=== PATIENT | female | born 1990 | race Caucasian/White ===

== ENCOUNTER → 2018-09-21 | Outpatient (CLI) | payer BC, SELFPAY ==
[2018-09-26 17:20] LABS: HPV Reflexed? NOT INDICATED
== END | disposition home or self-care (01) ==
LOC: LABSPEC 13:53
PROVIDERS: Visit Provider Obstetrics & Gynecology
DX: Z12.4 Encounter for screening for malignant neoplasm of cervix (principal)
CPT/HCPCS: 87624; 88175; G0145

== ENCOUNTER → 2018-12-22 | Outpatient (CLI) | payer BC, SELFPAY ==
[2018-12-10 11:44] VITALS: BMI 38.4
[2018-12-22 11:36] LABS: Prolactin 6.4 ng/mL; Thyroid Stim Hormone (TSH) 1.26 uIU/mL (0.358-3.74)
[2018-12-24 09:04] LABS: Progesterone Level 12.14 ng/mL (See Comment)
== END | disposition home or self-care (01) ==
LOC: LAB 09:55
PROVIDERS: Family Provider Family Medicine; PCP Family Medicine; Referring Provider Nurse Practitioner Women's Health; Visit Provider Nurse Practitioner Women's Health
DX: N64.3 Galactorrhea not associated with childbirth (principal); I10 Essential (primary) hypertension
CPT/HCPCS: 36415; 84144; 84146; 84443

== ENCOUNTER → 2019-03-04 12:07 | Outpatient (CLI) | payer BC, SELFPAY ==
[2019-03-04 11:41] VITALS: BMI 38.4
[2019-03-04 12:46] LABS: Absolute Lymphocyte Count 1.09 X10^3/uL (0.83-4.51); Absolute Neutrophil Count 5.5 X10^3/uL (2.0-7.7); Basophil# 0.03 X10^3/uL; Basophil% 0.4 % (0-1); Eosinophil# 0.06 X10^3/uL; Eosinophils% 0.8 % (0-5); Hematocrit 40.2 % (37-47); Hemoglobin 13.2 g/dL (12.0-15.0); Lymphocyte # 1.09 X10^3/ul (4.0); Lymphocyte % 15.2 % (19-41); Mean Corp Hgb Conc 32.8 g/dL (32-36); Mean Corpuscular Hgb 29.1 pg (27.0-32.0); Mean Corpuscular Volume 88.7 fL (81-99); Mean Platelet Vol. 10.1 fl (6.2-12.0); Monocyte# 0.53 X10^3/uL; Monocyte% 7.4 % (0-10); NRBC Flagged by Analyzer 0 % (0-5); Neutrophil # 5.45 X10^3/uL (2.7-7.7); Neutrophil % 75.9 % (47-70); Platelet Count 277 K/mm3 (150-450); RBC Distribution Width CV 12.9 % (11.6-14.6); RBC Distribution Width SD 42.2 fl (35.1-43.9); Red Blood Count 4.53 M/mm3 (4.2-5.4); White Blood Count 7.2 K/mm3 (4.4-11.0)
[2019-03-04 13:10] LABS: Albumin, Serum 3.8 g/dL (3.2-5.0); BUN 10 mg/dL (7-18); BUN/Creat Ratio 13.9 RATIO (10-20); Creatinine, Serum 0.72 mg/dL (0.55-1.02); EST Glomerular Filtration Rate 101 mL/min (>60); Est Glom Filt Rate - Afr Amer 122 mL/min (>60); Globulin 3.6 g/dL (2.2-4.2); Glucose 81 mg/dL (74-106); Protein, Total 7.4 g/dL (6.4-8.2)
[2019-03-04 13:11] LABS: ALB/GLOB Ratio 1.1 RATIO (0.9-2.4); AST(SGOT) 13 U/L (15-37); Alanine Aminotransfer ALT/SGPT 18 U/L (13-56); Alkaline Phosphatase 51 U/L (45-117); Anion Gap 6 (5-15); Calcium,Total 9.1 mg/dL (8.5-10.1); Chloride 103 mmol/L (98-107); Potassium 3.3 mmol/L (3.5-5.1); Sodium Level 135 mmol/L (136-145)
[2019-03-04 13:55] LABS: HIV - WCH Non-Reactive (Nonreactive); Rubella IgG 146.3 IU/mL
[2019-03-04 16:34] LABS: Protein, Urine (Random) 10.8 mg/dL (<11.9); Protein:Creat Ratio 193 mg/g CRE (0-200)
[2019-03-04 19:38] LABS: Chlamydia Trachomatis by PCR Negative (Negative); Neisserai gonorrhoeae by PCR Negative (Negative); Probe Check PASS; Sample Adequacy Control PASS; Specimen Processing Control PASS
[2019-03-08 02:41] LABS: Rapid Plasmin Reagin (RPR) NONREACTIVE (NONREACTIVE)
== END ==
PROVIDERS: Family Provider Family Medicine; PCP Family Medicine; Referring Provider Obstetrics & Gynecology; Visit Provider Obstetrics & Gynecology
DX: Z34.80 Encounter for supervision of other normal pregnancy, unspecified trimester (principal); I10 Essential (primary) hypertension
CPT/HCPCS: 36415; 80053; 82570; 84156; 85025; 86592; 86703; 86762; 86850; 86900; 86901; 87086; 87491; 87591

== ENCOUNTER → 2019-04-09 15:07 | Outpatient (CLI) | payer BC, SELFPAY ==
[2019-04-09 14:56] VITALS: BMI 38.4
[2019-04-09 15:31] LABS: Creatinine, Urine (random) < 13.00 mg/dL (NO RANGE EST.); Protein, Urine (Random) < 6.0 mg/dL (<11.9)
[2019-04-09 15:46] LABS: Absolute Lymphocyte Count 1.54 X10^3/uL (0.83-4.51); Absolute Neutrophil Count 5.4 X10^3/uL (2.0-7.7); Basophil# 0.03 X10^3/uL; Basophil% 0.4 % (0-1); Eosinophil# 0.16 X10^3/uL; Eosinophils% 2.1 % (0-5); Hematocrit 36.4 % (37-47); Hemoglobin 12.1 g/dL (12.0-15.0); Lymphocyte # 1.54 X10^3/ul (4.0); Lymphocyte % 20.1 % (19-41); Mean Corp Hgb Conc 33.2 g/dL (32-36); Mean Corpuscular Hgb 29.6 pg (27.0-32.0); Mean Platelet Vol. 9.9 fl (6.2-12.0); Monocyte# 0.51 X10^3/uL; Monocyte% 6.7 % (0-10); NRBC Flagged by Analyzer 0 % (0-5); Neutrophil % 70.4 % (47-70); Platelet Count 248 K/mm3 (150-450); RBC Distribution Width CV 13.2 % (11.6-14.6); RBC Distribution Width SD 43.2 fl (35.1-43.9); Red Blood Count 4.09 M/mm3 (4.2-5.4); White Blood Count 7.7 K/mm3 (4.4-11.0)
[2019-04-09 16:17] LABS: AST(SGOT) 11 U/L (15-37); Alanine Aminotransfer ALT/SGPT 16 U/L (13-56); Albumin, Serum 3.4 g/dL (3.2-5.0); Alkaline Phosphatase 49 U/L (45-117); Anion Gap 4 (5-15); BUN 11 mg/dL (7-18); BUN/Creat Ratio 18.4 RATIO (10-20); Calcium,Total 8.8 mg/dL (8.5-10.1); Chloride 105 mmol/L (98-107); EST Glomerular Filtration Rate 125 mL/min (>60); Est Glom Filt Rate - Afr Amer 151 mL/min (>60); Globulin 3.4 g/dL (2.2-4.2); Glucose 82 mg/dL (74-106); Potassium 3.2 mmol/L (3.5-5.1); Protein, Total 6.8 g/dL (6.4-8.2); Sodium Level 137 mmol/L (136-145)
== END ==
LOC: LABSPEC 15:08 → PAVLAB 15:23
PROVIDERS: Family Provider Family Medicine; PCP Family Medicine; Referring Provider Nurse Practitioner Women's Health; Visit Provider Nurse Practitioner Women's Health
DX: I10 Essential (primary) hypertension (principal)
CPT/HCPCS: 36415; 80053; 82570; 84156; 85025

== ENCOUNTER → 2019-04-26 10:53 | Outpatient (CLI) | payer BC, SELFPAY ==
[2019-04-26 10:47] VITALS: BMI 38.4
[2019-04-26 12:29] LABS: Hepatitis B Surface Antigen Non-Reactive (Nonreactive)
== END ==
PROVIDERS: Family Provider Family Medicine; PCP Family Medicine; Referring Provider Obstetrics & Gynecology; Visit Provider Obstetrics & Gynecology
DX: Z34.80 Encounter for supervision of other normal pregnancy, unspecified trimester (principal)
CPT/HCPCS: 36415; 87340

== ENCOUNTER → 2019-05-24 14:40 | Outpatient (CLI) | payer BC, SELFPAY ==
[2019-05-24 14:35] VITALS: BMI 38.4
[2019-05-24 14:55] LABS: Creatinine, Urine (random) < 13.00 mg/dL (NO RANGE EST.); Protein, Urine (Random) 6.1 mg/dL (<11.9)
[2019-05-24 15:23] LABS: Absolute Lymphocyte Count 1.76 X10^3/uL (0.83-4.51); Absolute Neutrophil Count 6.3 X10^3/uL (2.0-7.7); Basophil# 0.04 X10^3/uL; Basophil% 0.4 % (0-1); Eosinophil# 0.38 X10^3/uL; Eosinophils% 4.1 % (0-5); Hematocrit 36.2 % (37-47); Lymphocyte # 1.76 X10^3/ul (4.0); Lymphocyte % 19.2 % (19-41); Mean Corp Hgb Conc 33.1 g/dL (32-36); Mean Corpuscular Hgb 29.9 pg (27.0-32.0); Mean Corpuscular Volume 90.3 fL (81-99); Mean Platelet Vol. 10.3 fl (6.2-12.0); Monocyte# 0.64 X10^3/uL; NRBC Flagged by Analyzer 0 % (0-5); Neutrophil # 6.32 X10^3/uL (2.7-7.7); Platelet Count 245 K/mm3 (150-450); RBC Distribution Width CV 13.1 % (11.6-14.6); RBC Distribution Width SD 43.4 fl (35.1-43.9); Red Blood Count 4.01 M/mm3 (4.2-5.4); White Blood Count 9.2 K/mm3 (4.4-11.0)
[2019-05-24 15:46] LABS: ALB/GLOB Ratio 0.9 RATIO (0.9-2.4); AST(SGOT) 15 U/L (15-37); Alanine Aminotransfer ALT/SGPT 18 U/L (13-56); Albumin, Serum 3.3 g/dL (3.2-5.0); Alkaline Phosphatase 56 U/L (45-117); Anion Gap 5 (5-15); BUN 12 mg/dL (7-18); BUN/Creat Ratio 17.4 RATIO (10-20); Calcium,Total 9.1 mg/dL (8.5-10.1); Chloride 106 mmol/L (98-107); Creatinine, Serum 0.69 mg/dL (0.55-1.02); EST Glomerular Filtration Rate 106 mL/min (>60); Est Glom Filt Rate - Afr Amer 128 mL/min (>60); Globulin 3.6 g/dL (2.2-4.2); Glucose 82 mg/dL (74-106); LDH 181 U/L (84-246); Potassium 3.9 mmol/L (3.5-5.1); Protein, Total 6.9 g/dL (6.4-8.2); Sodium Level 138 mmol/L (136-145)
== END ==
PROVIDERS: Family Provider Family Medicine; PCP Family Medicine; Referring Provider Nurse Practitioner Women's Health; Visit Provider Nurse Practitioner Women's Health
DX: I10 Essential (primary) hypertension (principal)
CPT/HCPCS: 36415; 80053; 82570; 83615; 84156; 84550; 85025

== ENCOUNTER 2019-06-18 02:11 | Outpatient (CLI) | payer BC, SELFPAY ==
[2019-05-24 14:35] VITALS: BMI 38.4
[2019-06-18 02:43] VITALS: BMI 29.4
[2019-06-18 02:51] LABS: Bacteria 0 SEEN /hpf (None Seen); Color, Urine Yellow (Yellow); Glucose, Dipstick Normal (Normal); Ketone-Dipstick Negative (Negative); Leukocyte Esterase-Dipstick Negative /ul (Negative); Mucous, Urine 0 SEEN /hpf (<or=2+); Nitrite-Dipstick Negative (Negative); Occult Blood-Urine Negative /ul (Negative); Protein-Dipstick Negative (Negative); Urine Bilirubin Dipstick Negative (Negative); Urine Clarity Clear (Clear); Urine Urobilinogen Normal (Normal); Urine pH 6.5 (5.0 - 8.0)
[2019-06-18 02:57] LABS: Amorphous Sediment 2+; Red Blood Cells-Urine 0-5 SEEN /hpf (0-5); Squamous Epithelial Cells - UA 0-5 SEEN /hpf (5-10); White Blood Cells 0-5 SEEN /hpf (0-5)
[2019-06-18] MEDS: Lactated Ringers 1,000 ML 999 ML IV (03:25)
[2019-06-18 04:06] LABS: Hemoglobin 11.8 g/dL (12.0-15.0); Mean Corp Hgb Conc 33.7 g/dL (32-36); Mean Corpuscular Hgb 30.5 pg (27.0-32.0); Mean Corpuscular Volume 90.4 fL (81-99); Mean Platelet Vol. 10.2 fl (6.2-12.0); Platelet Count 247 K/mm3 (150-450); RBC Distribution Width CV 12.8 % (11.6-14.6); RBC Distribution Width SD 41.5 fl (35.1-43.9); Red Blood Count 3.87 M/mm3 (4.2-5.4)
[2019-06-18] MEDS: fentaNYL 100 MCG/2 ML Ampul 50 MCG IV (04:10)
[2019-06-18 04:16] LABS: ALB/GLOB Ratio 0.8 RATIO (0.9-2.4); AST(SGOT) 23 U/L (15-37); Alanine Aminotransfer ALT/SGPT 19 U/L (13-56); Albumin, Serum 2.8 g/dL (3.2-5.0); Alkaline Phosphatase 55 U/L (45-117); Anion Gap 7 (5-15); BUN 12 mg/dL (7-18); BUN/Creat Ratio 14.3 RATIO (10-20); Calcium,Total 8.5 mg/dL (8.5-10.1); Chloride 107 mmol/L (98-107); Creatinine, Serum 0.84 mg/dL (0.55-1.02); EST Glomerular Filtration Rate 84 mL/min (>60); Est Glom Filt Rate - Afr Amer 102 mL/min (>60); Estimated Creatinine Clearance 88.12 ml/min; Globulin 3.6 g/dL (2.2-4.2); Glucose 95 mg/dL (74-106); Potassium 3.8 mmol/L (3.5-5.1); Protein, Total 6.4 g/dL (6.4-8.2); Sodium Level 138 mmol/L (136-145)
[2019-06-18] MEDS: Ondansetron 4 MG/2 ML Vial IV (04:17)
[2019-06-18] MEDS: Lactated Ringers 1,000 ML 200 ML IV (04:38)
[2019-06-18 04:47] LABS: Fibrinogen 302 mg/dl (203-444)
[2019-06-18 05:02] LABS: Protein, Urine (Random) 27.4 mg/dL (<11.9); Protein:Creat Ratio 335 mg/g CRE (0-200)
[2019-06-18 05:14] LABS: Amphetamine Urine VISTA NEGATIVE (<1000 ng/mL); Barbiturate Urine VISTA NEGATIVE (< 200 ng/mL); Benzodiazepine Urine VISTA NEGATIVE (< 200 ng/mL); Cocaine Urine VISTA NEGATIVE (< 300 ng/mL); Ecstacy Urine VISTA NEGATIVE (< 500 ng/mL); Methadone Urine VISTA NEGATIVE (< 300 ng/mL); PCP Urine VISTA NEGATIVE (< 25 ng/mL); THC Urine VISTA NEGATIVE (< 50 ng/mL); Vista UDS pH Range 6
--- NOTE | 2019-06-18 09:16 | OB.TRI.PN_ITS ---
Progress Notes Date of Service: 06/18/19 Progress Note: patient seen for kidney stone, given IVFs and pain meds and passed the stone without difficulty. borderline elvated bps and borderline low fibringoen,. repeat in office monday. Laboratory Studies: Laboratory Tests 06/18/19 06/18/19 06/18/19 Range/Units 04:25 03:25 03:25 WBC (4.4-11.0) K/mm3 RBC (4.2-5.4) M/mm3 Hgb (12.0-15.0) g/dL Hct (37-47) % MCV (81-99) fL MCH (27.0-32.0) pg MCHC (32-36) g/dL RDW Std Deviation (35.1-43.9) fl RDW Coeff of Mushtaq (11.6-14.6) % Plt Count (150-450) K/mm3 MPV (6.2-12.0) fl Fibrinogen 302 Cancelled Sodium 138 (136-145) mmol/L Potassium 3.8 (3.5-5.1) mmol/L Chloride 107 (98-107) mmol/L Carbon Dioxide 24.0 (21.0-32.0) mmol/L Anion Gap 7 (5-15) BUN 12 (7-18) mg/dL Creatinine 0.84 (0.55-1.02) mg/dL Estim Creat Clear Calc 88.12 ml/min Est GFR (MDRD) Af Amer 102 (>60) mL/min Est GFR (MDRD) Non-Af 84 (>60) mL/min BUN/Creatinine Ratio 14.3 (10-20) RATIO Glucose 95 (74-106) mg/dL Calcium 8.5 (8.5-10.1) mg/dL Total Bilirubin 0.20 (0.20-1.00) mg/dL AST 23 (15-37) U/L ALT 19 (13-56) U/L Alkaline Phosphatase 55 (45-117) U/L Total Protein 6.4 (6.4-8.2) g/dL Albumin 2.8 L (3.2-5.0) g/dL Globulin 3.6 (2.2-4.2) g/dL Albumin/Globulin Ratio 0.8 L (0.9-2.4) RATIO Urine Color (Yellow) Urine Clarity (Clear) Urine pH (5.0 - 8.0) Ur Specific [place]den (1.002-1.030) Urine Protein (Negative) mg/dl Urine Glucose (UA) (Normal) mg/dl Urine Ketones (Negative) mg/dl Urine Occult Blood (Negative) /ul Urine Nitrite (Negative) Urine Bilirubin (Negative) mg/dL Urine Urobilinogen (Normal) mg/dl Ur Leukocyte Esterase (Negative) /ul Urine RBC (0-5) /hpf Urine WBC (0-5) /hpf Ur Squamous Epith Cells (5-10) /hpf Amorphous Sediment Urine Bacteria (None Seen) /hpf Urine Mucus (<or=2+) /hpf U Random Total Protein (<11.9) mg/dL Urine Creatinine (NO RANGE EST.) mg/dL Protein/Creatinin Ratio (0-200) mg/g CRE Urine Opiates Screen (< 300 ng/mL) Urine Methadone Screen (< 300 ng/mL) Ur Barbiturates Screen (< 200 ng/mL) Ur Phencyclidine Scrn (< 25 ng/mL) Ur Amphetamines Screen (<1000 ng/mL) U Methamphetamin-MDMA (< 500 ng/mL) U Benzodiazepines Scrn (< 200 ng/mL) Urine Cocaine Screen (< 300 ng/mL) U Cannabinoids Screen (< 50 ng/mL) Ur Drug Screen Comment 06/18/19 06/18/19 06/18/19 Range/Units 03:25 03:25 03:25 WBC 11.0 (4.4-11.0) K/mm3 RBC 3.87 L (4.2-5.4) M/mm3 Hgb 11.8 L (12.0-15.0) g/dL Hct 35.0 L (37-47) % MCV 90.4 (81-99) fL MCH 30.5 (27.0-32.0) pg MCHC 33.7 (32-36) g/dL RDW Std Deviation 41.5 (35.1-43.9) fl RDW Coeff of Mushtaq 12.8 (11.6-14.6) % Plt Count 247 (150-450) K/mm3 MPV 10.2 (6.2-12.0) fl Fibrinogen Sodium (136-145) mmol/L Potassium (3.5-5.1) mmol/L Chloride (98-107) mmol/L Carbon Dioxide (21.0-32.0) mmol/L Anion Gap (5-15) BUN (7-18) mg/dL Creatinine (0.55-1.02) mg/dL Estim Creat Clear Calc ml/min Est GFR (MDRD) Af Amer (>60) mL/min Est GFR (MDRD) Non-Af (>60) mL/min BUN/Creatinine Ratio (10-20) RATIO Glucose (74-106) mg/dL Calcium (8.5-10.1) mg/dL Total Bilirubin (0.20-1.00) mg/dL AST (15-37) U/L ALT (13-56) U/L Alkaline Phosphatase (45-117) U/L Total Protein (6.4-8.2) g/dL Albumin (3.2-5.0) g/dL Globulin (2.2-4.2) g/dL Albumin/Globulin Ratio (0.9-2.4) RATIO Urine Color (Yellow) Urine Clarity (Clear) Urine pH (5.0 - 8.0) Ur Specific [place]den (1.002-1.030) Urine Protein (Negative) mg/dl Urine Glucose (UA) (Normal) mg/dl Urine Ketones (Negative) mg/dl Urine Occult Blood (Negative) /ul Urine Nitrite (Negative) Urine Bilirubin (Negative) mg/dL Urine Urobilinogen (Normal) mg/dl Ur Leukocyte Esterase (Negative) /ul Urine RBC (0-5) /hpf Urine WBC (0-5) /hpf Ur Squamous Epith Cells (5-10) /hpf Amorphous Sediment Urine Bacteria (None Seen) /hpf Urine Mucus (<or=2+) /hpf U Random Total Protein 27.4 H (<11.9) mg/dL Urine Creatinine 81.70 (NO RANGE EST.) mg/dL Protein/Creatinin Ratio 335 H (0-200) mg/g CRE Urine Opiates Screen NEGATIVE (< 300 ng/mL) Urine Methadone Screen NEGATIVE (< 300 ng/mL) Ur Barbiturates Screen NEGATIVE (< 200 ng/mL) Ur Phencyclidine Scrn NEGATIVE (< 25 ng/mL) Ur Amphetamines Screen NEGATIVE (<1000 ng/mL) U Methamphetamin-MDMA NEGATIVE (< 500 ng/mL) U Benzodiazepines Scrn NEGATIVE (< 200 ng/mL) Urine Cocaine Screen NEGATIVE (< 300 ng/mL) U Cannabinoids Screen NEGATIVE (< 50 ng/mL) Ur Drug Screen Comment 06/18/19 Range/Units 02:40 WBC (4.4-11.0) K/mm3 RBC (4.2-5.4) M/mm3 Hgb (12.0-15.0) g/dL Hct (37-47) % MCV (81-99) fL MCH (27.0-32.0) pg MCHC (32-36) g/dL RDW Std Deviation (35.1-43.9) fl RDW Coeff of Mushtaq (11.6-14.6) % Plt Count (150-450) K/mm3 MPV (6.2-12.0) fl Fibrinogen Sodium (136-145) mmol/L Potassium (3.5-5.1) mmol/L Chloride (98-107) mmol/L Carbon Dioxide (21.0-32.0) mmol/L Anion Gap (5-15) BUN (7-18) mg/dL Creatinine (0.55-1.02) mg/dL Estim Creat Clear Calc ml/min Est GFR (MDRD) Af Amer (>60) mL/min Est GFR (MDRD) Non-Af (>60) mL/min BUN/Creatinine Ratio (10-20) RATIO Glucose (74-106) mg/dL Calcium (8.5-10.1) mg/dL Total Bilirubin (0.20-1.00) mg/dL AST (15-37) U/L ALT (13-56) U/L Alkaline Phosphatase (45-117) U/L Total Protein (6.4-8.2) g/dL Albumin (3.2-5.0) g/dL Globulin (2.2-4.2) g/dL Albumin/Globulin Ratio (0.9-2.4) RATIO Urine Color Yellow (Yellow) Urine Clarity Clear (Clear) Urine pH 6.5 (5.0 - 8.0) Ur Specific [place] 1.020 (1.002-1.030) Urine Protein Negative (Negative) mg/dl Urine Glucose (UA) Normal (Normal) mg/dl Urine Ketones Negative (Negative) mg/dl Urine Occult Blood Negative (Negative) /ul Urine Nitrite Negative (Negative) Urine Bilirubin Negative (Negative) mg/dL Urine Urobilinogen Normal (Normal) mg/dl Ur Leukocyte Esterase Negative (Negative) /ul Urine RBC 0-5 SEEN (0-5) /hpf Urine WBC 0-5 SEEN (0-5) /hpf Ur Squamous Epith Cells 0-5 SEEN (5-10) /hpf Amorphous Sediment 2+ Urine Bacteria 0 SEEN (None Seen) /hpf Urine Mucus 0 SEEN (<or=2+) /hpf U Random Total Protein (<11.9) mg/dL Urine Creatinine (NO RANGE EST.) mg/dL Protein/Creatinin Ratio (0-200) mg/g CRE Urine Opiates Screen (< 300 ng/mL) Urine Methadone Screen (< 300 ng/mL) Ur Barbiturates Screen (< 200 ng/mL) Ur Phencyclidine Scrn (< 25 ng/mL) Ur Amphetamines Screen (<1000 ng/mL) U Methamphetamin-MDMA (< 500 ng/mL) U Benzodiazepines Scrn (< 200 ng/mL) Urine Cocaine Screen (< 300 ng/mL) U Cannabinoids Screen (< 50 ng/mL) Ur Drug Screen Comment - Problem List (1) Proteinuria Status: Acute Comment: repeat urine protein creatinine ratio in office 06/21/19 (2) Nephrolithiasis Status: Acute Comment: passed 06/18/19 macrobid bid x 7 days. order repeat fibrinogen in office 06/21/19 Multi Select Codes - Urinary/Genital Urinary/Genital CPT Codes: Other Procedure See Report - report visit no charge
== END 2019-06-18 07:40 | disposition home or self-care (01) ==
LOC: WPOUT 02:16 → OBT 02:17
PROVIDERS: Family Provider Family Medicine; PCP Family Medicine; Referring Provider Obstetrics & Gynecology; Visit Provider Obstetrics & Gynecology
DX: O26.899 Other specified pregnancy related conditions, unspecified trimester (principal); N20.0 Calculus of kidney; O12.10 Gestational proteinuria, unspecified trimester; R03.0 Elevated blood-pressure reading, without diagnosis of hypertension; Z3A.00 Weeks of gestation of pregnancy not specified
CPT/HCPCS: 96361 ×4; 96374; 36415; 59050; 80053; 80307; 81001; 82570; 84156; 85027; 85384; 87086; 87088; 99218; J7120; A4216; G0378; J2405

== ENCOUNTER → 2019-06-21 10:57 | Outpatient (CLI) | payer BC, SELFPAY ==
[2019-06-21 10:17] VITALS: BMI 29.4
[2019-06-21 11:24] LABS: Fibrinogen 358 mg/dl (203-444)
[2019-06-21 14:14] LABS: Creatinine, Urine (random) < 13.00 mg/dL (NO RANGE EST.); Protein, Urine (Random) < 6.0 mg/dL (<11.9)
== END ==
PROVIDERS: PCP Family Medicine; Referring Provider Obstetrics & Gynecology; Visit Provider Obstetrics & Gynecology
DX: I10 Essential (primary) hypertension (principal)
CPT/HCPCS: 36415; 82570; 84156; 85384

== ENCOUNTER → 2019-07-12 10:17 | Outpatient (CLI) | payer BC, SELFPAY ==
[2019-07-12 10:00] VITALS: BMI 29.4
[2019-07-12 11:41] LABS: Absolute Lymphocyte Count 1.22 X10^3/uL (0.83-4.51); Absolute Neutrophil Count 5.5 X10^3/uL (2.0-7.7); Basophil# 0.03 X10^3/uL; Basophil% 0.4 % (0-1); Eosinophil# 0.12 X10^3/uL; Eosinophils% 1.6 % (0-5); Hematocrit 34.4 % (37-47); Hemoglobin 11.2 g/dL (12.0-15.0); Lymphocyte # 1.22 X10^3/ul (4.0); Lymphocyte % 16.5 % (19-41); Mean Corp Hgb Conc 32.6 g/dL (32-36); Mean Corpuscular Hgb 29.9 pg (27.0-32.0); Mean Platelet Vol. 10.2 fl (6.2-12.0); Monocyte# 0.55 X10^3/uL; Monocyte% 7.4 % (0-10); NRBC Flagged by Analyzer 0 % (0-5); Neutrophil # 5.45 X10^3/uL (2.7-7.7); Neutrophil % 73.7 % (47-70); Platelet Count 247 K/mm3 (150-450); RBC Distribution Width CV 13.1 % (11.6-14.6); RBC Distribution Width SD 43.7 fl (35.1-43.9); Red Blood Count 3.74 M/mm3 (4.2-5.4); White Blood Count 7.4 K/mm3 (4.4-11.0)
[2019-07-12 12:26] LABS: ALB/GLOB Ratio 0.8 RATIO (0.9-2.4); AST(SGOT) 13 U/L (15-37); Alanine Aminotransfer ALT/SGPT 19 U/L (13-56); Albumin, Serum 2.9 g/dL (3.2-5.0); Alkaline Phosphatase 61 U/L (45-117); Anion Gap 5 (5-15); BUN 11 mg/dL (7-18); BUN/Creat Ratio 14.8 RATIO (10-20); Calcium,Total 8.4 mg/dL (8.5-10.1); Chloride 106 mmol/L (98-107); Creatinine, Serum 0.74 mg/dL (0.55-1.02); EST Glomerular Filtration Rate 97 mL/min (>60); Est Glom Filt Rate - Afr Amer 118 mL/min (>60); Globulin 3.8 g/dL (2.2-4.2); Glucose 73 mg/dL (74-106); Glucose Challenge Gest 1H 50g 73 mg/dL (70-140); Potassium 3.7 mmol/L (3.5-5.1); Protein, Total 6.7 g/dL (6.4-8.2); Sodium Level 138 mmol/L (136-145)
== END ==
PROVIDERS: PCP Family Medicine; Referring Provider Obstetrics & Gynecology; Visit Provider Obstetrics & Gynecology
DX: Z34.82 Encounter for supervision of other normal pregnancy, second trimester (principal); I10 Essential (primary) hypertension; Z3A.27 27 weeks gestation of pregnancy
CPT/HCPCS: 36415; 80053; 82950; 85025

== ENCOUNTER 2019-08-12 13:20 | Outpatient (CLI) | payer BC, SELFPAY ==
[2019-08-05 10:02] VITALS: BMI 29.4
--- NOTE | 2019-08-12 12:27 | US_ITS ---
STUDY: SECOND AND THIRD TRIMESTER OBSTETRICAL ULTRASOUND - LIMITED REASON FOR EXAM: Female, 28 years old growth and BPP for hypertension LMP: December 29, 2018. PRIOR ULTRASOUND: None. TECHNIQUE: Transabdominal TECHNICAL QUALITY: Adequate. FINDINGS: There is a single intrauterine fetus. The fetus is in a breech presentation. There is demonstrated cardiac activity with a heart rate of 136 bpm. There is a normal amniotic fluid volume. The largest amniotic fluid pocket measures 5.0 cm. The amniotic fluid index (AKOSUA) is 15.5 cm. The placenta is anterior in location and is not low lying. There are Grade 1 placental changes. The cervix measures 3.9 cm in length. BIOMETRY: BPD: 8.48 cm: 34 weeks, 1 days HC: 31.4 cm: 35 weeks, 1 days AC: 30.56 cm: 34 weeks, 3 days FL: 6.33 cm: 32 weeks, 5 days Age by LMP: 32 weeks, 2 days. DEV by LMP: October 05, 2019. age by current US: 34 weeks, 0 days. DEV by current US: October 23, 2019. Estimated weight: 2341 grams, +/- 346 grams, 86 percentile. IMPRESSION: Single live intrauterine gestation with a mean gestational age of 34 weeks. Electronically Signed: Leo Su, at 15:30 EDT , Service support , STUDY: OBSTETRICAL ULTRASOUND - BIOPHYSICAL PROFILE REASON FOR EXAM: Female, 28 years old growth and BPP for hypertension LMP: December 29, 2018. PRIOR ULTRASOUND: None. TECHNIQUE: TECHNICAL QUALITY: Adequate. BIOPHYSICAL PROFILE: Breathing Movements (FBM): 0 Gross Body Movements (GBM): 2 Tone (FT): 2 Amniotic Fluid Volume (AFV): 2 TOTAL SCORE: 6 / 8 US/OB Limited With Biometrics IMPRESSION: biophysical profile of 11/10. Electronically Signed: Leo Su, at 15:30 EDT , Service support ,
[2019-08-12 13:32] VITALS: BMI 31.2
--- NOTE | 2019-08-13 04:17 | OB.TRI.PN_ITS ---
Progress Notes Date of Service: 08/12/19 Progress Note: nst secondary to 6/8 BPP 2 off for breathing FHT: 140 Moderate variability reactive no decelerations category I tracing [place]: no Contractions Abnormal testing?reassuring reactive NST. 8 out of 10 BPP. Multi Select Codes - Urinary/Genital Urinary/Genital CPT Codes: 29858-40 non-stress test Interp
== END 2019-08-12 17:10 | disposition home or self-care (01) ==
LOC: OPUS 13:26 → WPOUT 13:28 → OBT 13:29
PROVIDERS: PCP Family Medicine; Referring Provider Obstetrics & Gynecology; Visit Provider Obstetrics & Gynecology
DX: O28.9 Unspecified abnormal findings on antenatal screening of mother (principal); Z3A.00 Weeks of gestation of pregnancy not specified
CPT/HCPCS: 59025; 59050; 76816; 76819; 99218; G0378

== ENCOUNTER → 2019-09-06 09:01 | Outpatient (CLI) | payer BC, SELFPAY ==
[2019-08-05 10:02] VITALS: BMI 29.4
[2019-08-27 09:59] VITALS: BMI 31.2
--- NOTE | 2019-09-06 09:04 | US_ITS ---
STUDY: SECOND AND THIRD TRIMESTER OBSTETRICAL ULTRASOUND REASON FOR EXAM: Female, 29 years old GROWTH LMP: December 29, 2018. TECHNIQUE: Transabdominal TECHNICAL QUALITY: Adequate. PRIOR ULTRASOUND: Comparison is made with prior study dated August 12, 2019. FINDINGS: There is a single intrauterine fetus. The fetus is in a breech presentation. There is demonstrated cardiac activity with a heart rate of 140 bpm. There is a normal amniotic fluid volume. The largest amniotic fluid pocket measures 5.2 cm. The amniotic fluid index (AKOSUA) is 14.2 cm. The placenta is anterior in location and is not low lying. There are Grade 1 placental changes. The cervix measures 3.8 cm in length. The adnexal regions are not visualized. The placental cord insertion is at 1.3 cm from the placenta superior edge. BIOMETRY: BPD: 9.4 cm: 38 weeks, 1 days HC: 34.3 cm: 39 weeks, 4 days AC: 32.9 cm: 36 weeks, 5 days FL: 7.1 cm: 36 weeks, 2 days CI: 82% FL/BPD: 76% FL/HC: FL/AC: 22% HC/AC: 1.04 age by current US: 37 weeks, 6 days. DEV by current US: September 21, 2019. Estimated weight: 3137 grams, +/- 464 grams, 81 %. age by prior US: 37 weeks, 4 days. DEV by prior US: September 23, 2019. Age by LMP: 35 weeks, 6 days. DEV by LMP: October 05, 2019. US/OB Limited With Biometrics IMPRESSION: Single live intrauterine gestation with a mean gestational age of 37 weeks and 4 days. The measurements obtained today fall within the normal expected range. Electronically Signed: Leo Su, at 10:54 EDT , Service support ,
== END ==
PROVIDERS: PCP Family Medicine; Referring Provider Obstetrics & Gynecology; Visit Provider Obstetrics & Gynecology
DX: O16.3 Unspecified maternal hypertension, third trimester (principal); Z3A.35 35 weeks gestation of pregnancy
CPT/HCPCS: 76816; 87081

== ENCOUNTER → 2019-09-16 | Outpatient (CLI) | payer BC, SELFPAY ==
[2019-09-16 09:02] VITALS: BMI 32.8
[2019-09-16 10:22] LABS: Absolute Lymphocyte Count 1.64 X10^3/uL (0.83-4.51); Absolute Neutrophil Count 6.7 X10^3/uL (2.0-7.7); Basophil# 0.03 X10^3/uL; Basophil% 0.3 % (0-1); Eosinophil# 0.07 X10^3/uL; Eosinophils% 0.8 % (0-5); Hematocrit 38.8 % (37-47); Hemoglobin 12.7 g/dL (12.0-15.0); Lymphocyte # 1.64 X10^3/ul (4.0); Lymphocyte % 17.8 % (19-41); Mean Corp Hgb Conc 32.7 g/dL (32-36); Mean Corpuscular Volume 91.5 fL (81-99); Mean Platelet Vol. 9.7 fl (6.2-12.0); Monocyte# 0.71 X10^3/uL; Monocyte% 7.7 % (0-10); NRBC Flagged by Analyzer 0 % (0-5); Neutrophil # 6.71 X10^3/uL (2.7-7.7); Neutrophil % 72.9 % (47-70); Platelet Count 252 K/mm3 (150-450); RBC Distribution Width CV 13.2 % (11.6-14.6); RBC Distribution Width SD 43.7 fl (35.1-43.9); Red Blood Count 4.24 M/mm3 (4.2-5.4); White Blood Count 9.2 K/mm3 (4.4-11.0)
[2019-09-16 10:57] LABS: ALB/GLOB Ratio 0.8 RATIO (0.9-2.4); AST(SGOT) 18 U/L (15-37); Alanine Aminotransfer ALT/SGPT 18 U/L (13-56); Albumin, Serum 2.9 g/dL (3.2-5.0); Alkaline Phosphatase 125 U/L (45-117); Anion Gap 7 (5-15); BUN 10 mg/dL (7-18); Calcium,Total 8.4 mg/dL (8.5-10.1); Chloride 105 mmol/L (98-107); Creatinine, Serum 0.77 mg/dL (0.55-1.02); EST Glomerular Filtration Rate 93 mL/min (>60); Est Glom Filt Rate - Afr Amer 112 mL/min (>60); Globulin 3.6 g/dL (2.2-4.2); Glucose 75 mg/dL (74-106); Protein, Total 6.5 g/dL (6.4-8.2); Sodium Level 137 mmol/L (136-145)
[2019-09-16 11:49] LABS: Creatinine, Urine (random) < 13.00 mg/dL (NO RANGE EST.); Protein, Urine (Random) < 6.0 mg/dL (<11.9)
== END | disposition home or self-care (01) ==
PROVIDERS: PCP Family Medicine; Referring Provider Nurse Practitioner Women's Health; Visit Provider Nurse Practitioner Women's Health
DX: Z34.80 Encounter for supervision of other normal pregnancy, unspecified trimester (principal); I10 Essential (primary) hypertension
CPT/HCPCS: 80053; 82570; 84156; 85025

== ENCOUNTER 2019-09-18 11:18 | Inpatient (IN) | payer BC, SELFPAY ==
[2019-09-06 09:54] VITALS: BMI 31.2
[2019-09-16 09:50] VITALS: BMI 31.2
[2019-09-18] VITALS (23 sets, daily range): BP systolic 114–163; BP diastolic 76–104; PULSE 74–105; RESP 14–18; TEMP 36.3–37.1; O2SAT 94–100; BMI 32.3
[2019-09-18 10:14] LABS: Hematocrit 39.2 % (37-47); Mean Corp Hgb Conc 33.2 g/dL (32-36); Mean Corpuscular Hgb 30.1 pg (27.0-32.0); Mean Corpuscular Volume 90.7 fL (81-99); Mean Platelet Vol. 9.8 fl (6.2-12.0); Platelet Count 247 K/mm3 (150-450); RBC Distribution Width CV 13.2 % (11.6-14.6); Red Blood Count 4.32 M/mm3 (4.2-5.4); White Blood Count 11.5 K/mm3 (4.4-11.0)
[2019-09-18 10:26] LABS: AST(SGOT) 16 U/L (15-37); Alanine Aminotransfer ALT/SGPT 18 U/L (13-56); Creatinine, Serum 0.84 mg/dL (0.55-1.02); EST Glomerular Filtration Rate 84 mL/min (>60); Est Glom Filt Rate - Afr Amer 101 mL/min (>60); Estimated Creatinine Clearance 87.32 ml/min; Uric Acid 3.7 mg/dL (2.6-6.0)
[2019-09-18 10:27] LABS: International Normalized Ratio 0.9; Prothrombin Time (Protime)PT. 11.9 SECONDS (11.7-14.9)
[2019-09-18 10:28] LABS: Partial Thromboplast Time 25.2 Seconds (24.1-36.2)
[2019-09-18 10:35] LABS: Protein, Urine (Random) 42.5 mg/dL (<11.9); Protein:Creat Ratio 203 mg/g CRE (0-200)
[2019-09-18] MEDS: Lactated Ringers 1,000 ML 999 ML IV (11:30)
[2019-09-18] MEDS: Lactated Ringers 1,000 ML 150 ML IV (12:30)
[2019-09-18] MEDS: Sodium Citrate/Citric Acid 30 ML UDC PO (12:39)
--- NOTE | 2019-09-18 12:39 | PCM.HP.BLA ---
History and Physical Date of Admission: 09/18/19 ACOG ANTEPARTUM RECORD - HISTORY AND PHYSICAL (09/18/2019) Name: MERISSA HERNANDEZ History of This : This is a 29-year-old [address] Yumiko Deal who presents to labor and delivery with severe headache and elevated blood pressure. care has been remarkable for elevated blood pressure for several months. Pre-E labs today showed mildly elevated urine protein and blood pressures in the 150/100 range. This did not improve with position changes and blood pressures remained elevated despite starting Procardia last evening. Given that the patient is 37 weeks and 4 days gestation it was decided to proceed with section for breech presentation and gestational hypertension. OB Physician: Mely [place]'s Physician: Dr. Lorenzo and PED DENSITY CONTROL PUNCHER ...................................................................... : 1990 Age: 29 Address: [address] [place] [address] Phone: H) [phone] [id number] Emergency Contact: EDWINFLETCHERLISA HERNANDEZ [phone] ...................................................................... Final DEV: 01/14/16 By Ultrasound: 8 weeks 6 days PARITY: (G-Total Pregnancies P-Fullterm,Premature,Induced AB,Spont AB, Ectopics, Multiple,Living) DEV CONFIRMATION: By LMP: 09/10/18 By First Ultrasound Exam: 01/21/16 Final DEV: 01/14/16 OB PROBLEM LIST: declines AFP screen CF also declined kidney stone hx with initial ALLERGIES: NKDA MEDICATIONS: Fish Oil 1,000 mg (120 mg-180 mg) capsule 1 PO QD Multiple Vitamin, Womens tablet One pill by mouth once a day SOCIAL HISTORY: Smoking - Never Alcohol Use - RARELY Diet - no particular diet Lifestyle - moderate stress lifestyle and Exercise - active Employer - [employer] 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 28 y,o. G 2 P 2 non-smoker with regular menses and LMP of 09-10-18 lasting her average of 6 days. Reports they are starting to attempt and PCP is watching her BP closely as it has been running on the high side x several months. Today 158/110 with it being the highest so far, and denies headache or blurry vision. Admits she tried Labetalol and it made her sick and was d/c'ed, and advised to monitor blood pressures at home as well with highest there being between 124/82 to 135/92. Medication list up-dated. History of all normal pap screenings since 2011 with last in 2017. LYDIA REVIEW OF SYSTEMS: GENERAL - Denies fever, or chills SKIN - Denies rash, new skin lesions, or change in moles EYES - Denies blurred vision, or change in visual acuity EARS - Denies ear pain, or difficulty hearing NOSE - Denies nasal congestion, discharge, or bleeding MOUTH - Denies sore throat, or difficulty swallowing NECK - Denies pain or swelling RESPIRATORY - Denies shortness of breath, cough, wheezing CARDIOVASCULAR - Denies palpitations, chest pain, orthopnea, PND, peripheral edema, syncope or claudication GASTROINTESTINAL - Denies nausea, vomiting, diarrhea, constipation, Denies abdominal pain, melena and or bright red blood GENITOURINARY - Denies dysuria, frequency of urination, urgency, or hesitancy MUSCULOSKELETAL - Denies joint or muscle pain, or back pain NEUROLOGICAL - Denies localized numbness, weakness, or tingling PSYCHIATRIC - Denies depression, anxiety, substance abuse or suicide attempts ENDOCRINE - Denies heat or cold intolerance, weight loss or gain, increasing thirst HEMATO-IMMUNOLOGIC - Denies easy bruising, bleeding, oral ulcerations or recurrent infections GENETICS SCREENING: Age 35+ years: No Thalassemia: No Neural Tube Defect: No Down Syndrome: No JIGNA-SACHS: No Sickle Cell Disease: No Hemophilia: No Musc. Dystrophy: No Cystic Fibrosis: No-declines screening [place] Chorea: No Mental Retardation: Yes Fragile X: No Other genetic: No Other defects: No SABs/still births: No Drugs since LMP: No INFECTION HISTORY: High risk AIDS: No High risk Hepatitis: No Exposed to TB: No Exposed to Herpes: No Rash/viral illness since LMP: No History of STD: No MENSTRUAL HISTORY: *Menses Amount/Duration: 6 daysMenses Regularity: RegularFrequency: monthlyMenarche (Age Onset): 11* PAST SUMMARY: PARITY: 1. Total Pregnancies............ 2 2. Full Term Pregnancies........ 2 3. Premature.................... 0 4. Abortions - Induced.......... 0 5. Abortions - Spontaneous...... 0 6. Ectopics..................... 0 7. Multiple Births.............. 0 8. Living Children.............. 2 PAST #1: Date of :.................. 10/23/13 Gestation Weeks:................ 37 Length of labor(hours):......... 9 Sex:............................ M Weight-lbs:............... 7 Weight-oz:................ 1 Type of Delivery:............... Vag Type of Anesthesia:............. Epidural Place of Delivery:.............. [facility] Treatment of Labor?:.... No Comment: PHYSICAL EXAMINATION General Appearence: 29 yo female in no acute distress; 3+ deep tendon reflexes Vital Signs: AF, VSS Heart: RRR without rubs or gallops Lungs: CTA x 2 Breasts: deferred Abdomen: gravid Pelvis: Cervix: Not examined Presentation: Breech Station: Not examined Fetus: Size: AGA Movement: present Heart: present Impression /Plan: 37+ week intrauterine with gestational hypertension and early -induced hypertension. Breech presentation. Plan primary section. Discussed risks benefits and alternatives and all questions were answered. Preparations in progress for delivery.
--- NOTE | 2019-09-18 12:56 | OP.PCM_ITS ---
Delivery Classification: CHARLES Final DEV: 10/05/19 Final DEV Source: US <20 weeks Gestational age: 37 Weeks and 4 Days retail agent: Fadia Figueroa Type of Anesthesia:: Spinal - With Duramorph Implants Used: None Date of Procedure: 09/18/19 Pre-Operative Diagnosis: Gestational Hypertension, Mild -Induced Hypertension, Breech Presentation Post-Operative Diagnosis: Gestational Hypertension, Mild -Induced Hypertension, Breech Presentation Description of Procedure: Surgeon: Jah Dos Santos MD, FACOG Anesthesia: Fe Piña CRNA Anesthesia: Spinal with Duramorph Procedure: Primary Low Transverse Cervical Caesarean Section Findings: Viable female infant with Apgars of 8/9 in anamika breech presentation with clear amniotic fluid and normal three-vessel placenta. Indication: This is a 29-year-old who presents for her first at 37+ weeks gestation. care has been remarkable for gestational hypertension poorly controlled. Baby is also in breech presentation. care has otherwise been uneventful. The patient has been counseled regarding the risk and indications of this procedure including the possibility of bleeding infection and injury to surrounding structures such as bowel bladder. All questions were answered. Procedure: Patient was taken to the operating room where after spinal anesthesia was placed, the patient was prepped and draped in usual sterile fashion and a Barnes catheter was placed. The abdomen was entered through a Pfannenstiel incision and peritoneum was entered bluntly. After developing a bladder flap on the lower uterine segment a low transverse incision was made on the uterus and f etal breech was easily delivered onto the operative field the nose mouth and oropharynx were bulb suctioned. Subsequently a viable female was born with Apgars of 8/9. The was noted to cry move all extremities vigorously on the operative field. The umbilical cord was doubly clamped and ligated and infant handed to the nursery personnel who were present for the delivery. Placenta was delivered and noted to be 3 vessels and normal. Uterus was exteriorized and remaining placental tissue was removed. The uterus was then closed in 2 layers first with running locked 0 Vicryl suture followed by a second imbricating layer with 0 Vicryl suture. 0 Vicryl suture was then used in a horizontal mattress interrupted fashion to affect final hemostasis of the uterine incision line. Normal fallopian tubes and ovaries were visualized and the uterus was returned to the pelvis. Hemostasis was noted and rectus abdominis muscles were reapproximated in the midline with interrupted Number 0 Vicryl suture in a horizontal mattress fashion. Fascia was closed with running Number 1 PDS Strata fix suture. Subcutaneous tissue was irrigated with copious amounts of saline solution and then closed with running 3-0 Vicryl suture. Skin was closed with 4-0 monocryl suture in a running subcuticular fashion. Steri strips and a Mepilex dressing were placed across the incision. The patient tolerated the procedure well and was taken to the recovery room in satisfactory condition. Sponge, needle, and instrument counts were all reportedly correct. EBL was 500 cc. Cefotetan 2 gms IV was given prior to the procedure. Amniotic Fluid Description: Clear Specimen(s) sent to pathology: None Drain: Barnes to straight drain Fluids Replaced: Crystalloid Cord Entanglement: None Cord Vessel Description: 3 Vessels Esitmated Blood Loss (ml): 500 cc Infant Gender: Female (1 minute): 8 (5 minute): 9 Antibiotic Given: Cefotan 2gm IV x1 Pt instructed on risks of surgery: Bleeding, Infection, Injury to surrounding structure(s) including bowel and bladder Complications: None - Admit VTE Documentation VTE Present on Admission: Yes VTE Mechan Device Prophylaxis: SCD's
[2019-09-18] MEDS: Oxytocin 30 units/NS 500 ml 30 UNITS/500 ML IV.SOLN 167 UNITS IV (14:20)
--- NOTE | 2019-09-18 14:45 | DCINST_ITS ---
Discharge Diet: No Restrictions Discharge Activity: May not drive while taking narcotic pain medications., May Shower, May Take a Tub Bath May resume sexual activity in: 4-6 weeks Lifting Restrictions: 20 pounds Additional Activity Instructions:: Nothing in the vagina for 4-6 weeks. You may return to work/school in 6 weeks. Call your doctor if your incision/area has: Continuous Slow Oozing, Sudden Increased Bleeding, Increased Pain/ Swelling, Increased Redness, Foul Smelling Discharge Call your doctor if you observe: Fever of 101 or Higher, Inability to urinate, Inability to have a bowel movement, Using more than one pad per hour Additional Instructions: If you experience any of the following, contact your healthcare provider. * Bleeding that soaks a pad every hour for 2 hours * Fever 100.4 or higher * Unrelieved incision or abdominal pain * Swelling, redness, discharge or bleeding from your incision or episiotomy site * Your incision begins to separate * Problems urinating (including inability to urinate or burning while urinating). * Visual changes * Severe headache * Flu-like symptoms * Pain or redness in one of both of your breasts * Pain, warmth, tenderness or swelling in your legs, especially the calf area * Frequent nausea and vomiting * Symptoms of depression or anxiety If you experience any of the following, call 911 or go to the nearest Emergency Room. * Chest pain * Problems breathing * Seizure activity * Partial or complete paralysis of a body part, slurred speech, weakness or drooping of the face, or a sudden inability to walk or hold your balance Allergies/Adverse Reactions: Allergies No Known Allergies Allergy (Verified 09/18/19 09:58) Medications to take at Discharge Vits [Prenatabs FA ] 1 tab PO DAILY 08/16/13 Aspirin [Aspir 81] 81 mg PO DAILY 06/18/19 nifedipine 30 mg tablet,extended release 30 mg PO DAILY #30 tab 09/17/19 Docusate Sodium [Colace] 100 mg PO BID PRN PRN #60 cap 09/18/19 RX: Oxycodone [Oxyir] 5 mg PO Q6H PRN PRN 7 Days #20 tab 09/18/19 The following prescriptions were given: Docusate Sodium [Colace] 100 mg PO BID PRN PRN #60 cap PRN Reason: Constipation Transmission Status: Received by [facility] [id number] RX: Oxycodone [Oxyir] 5 mg PO Q6H PRN PRN 7 Days #20 tab PRN Reason: Pain Score 6-10/10 Transmission Status: Received by [facility] 1728 Follow-Up: Call to make an appointment with your doctor for an incision check in 1-2 weeks. You will also need a 6 week post- follow up appointment. Test results from this visit will be discussed in further detail at your follow- up appointment, if applicable. Please Follow Up With: Jah Dos Santos MD - [phone] When: Call to make an appointment for an incision check in 2 weeks. Primary Care Physician: Loren Elder PA-C [Primary Care Provider] -
[2019-09-18] MEDS: Lactated Ringers 1,000 ML 100 ML IV (17:25)
[2019-09-18] MEDS: Ondansetron 4 MG/2 ML Vial IV (17:25)
[2019-09-18] MEDS: Labetalol 100 MG Tablet PO (17:25)
[2019-09-18] MEDS: Acetaminophen 500 MG Tablet 1000 MG PO (18:06)
[2019-09-18] MEDS: Ketorolac 30 MG/ML Syringe IV (20:00)
[2019-09-18] MEDS: 0.9% Saline Lock 10 ML Syringe IV (20:01)
--- NOTE | 2019-09-18 22:04 | NURSING ---
incentive spirometer provided to pt.
[2019-09-19] VITALS (8 sets, daily range): BP systolic 117–145; BP diastolic 77–95; PULSE 79–92; RESP 14–18; TEMP 36.4–37.1; O2SAT 96–98
[2019-09-19] MEDS: 0.9% Saline Lock 10 ML Syringe IV ×4 (01:52→21:19)
[2019-09-19] MEDS: Ketorolac 30 MG/ML Syringe IV ×4 (01:52→21:19)
[2019-09-19 05:12] LABS: Hematocrit 33.9 % (37-47); Hemoglobin 11.3 g/dL (12.0-15.0); Mean Corp Hgb Conc 33.3 g/dL (32-36); Mean Corpuscular Hgb 30.1 pg (27.0-32.0); Mean Corpuscular Volume 90.2 fL (81-99); Mean Platelet Vol. 10.2 fl (6.2-12.0); Platelet Count 231 K/mm3 (150-450); RBC Distribution Width CV 13.2 % (11.6-14.6); RBC Distribution Width SD 42.9 fl (35.1-43.9); Red Blood Count 3.76 M/mm3 (4.2-5.4)
[2019-09-19] MEDS: Labetalol 100 MG Tablet PO ×2 (05:52→17:24)
--- NOTE | 2019-09-19 08:48 | PCM.PN.OB ---
Subjective: doing well no complaints pain controlled no CP SOB N V ambulating well tolerating po lochia moderate, going well - Physical Exam Vitals/I&O's: Vital Signs Temp Pulse Resp BP Pulse Ox 97.5 F L 80 16 132/86 H 97 09/19/19 04:30 09/19/19 05:51 09/19/19 05:51 09/19/19 04:30 09/19/19 04:30 Oxygen Delivery Method Room Air Weight: 194 lb Body Mass Index (BMI) 32.3 Intake and Output for Last 24 Hours 09/17/19 09/18/19 09/19/19 23:59 23:59 23:59 Intake Total 2160.83 / 2160.83 273.33 / 273.33 Output Total 1400 / 1400 1400 / 1400 Balance 760.83 / 760.83 -1126.67 / -1126.67 General: Alert, Oriented x3 Laboratory Results 09/18/19 10:00: WBC 11.5 H, RBC 4.32, Hgb 13.0, Hct 39.2, MCV 90.7, MCH 30.1, MCHC 33.2, RDW Std Deviation 43.0, RDW Coeff of Mushtaq 13.2, Plt Count 247, MPV 9.8 09/18/19 10:00: PT 11.9, INR 0.9, APTT 25.2 09/18/19 10:00: U Random Total Protein 42.5 H, Urine Creatinine 209.00, Protein/Creatinin Ratio 203 H 09/18/19 10:00: Creatinine 0.84, Estim Creat Clear Calc 87.32, Est GFR (MDRD) Af Amer 101, Est GFR (MDRD) Non-Af 84, Uric Acid 3.7, AST 16, ALT 18 09/18/19 11:30: Blood Type O POSITIVE, Antibody Screen NEGATIVE 09/19/19 04:20: WBC 12.0 H, RBC 3.76 L, Hgb 11.3 L, Hct 33.9 L, MCV 90.2, MCH 30.1, MCHC 33.3, RDW Std Deviation 42.9, RDW Coeff of Mushtaq 13.2, Plt Count 231, MPV 10.2 Current Medications Acetaminophen (Tylenol) 1,000 mg PO Q8H PRN PRN Reason: Pain Score 1-3/10 Last Admin: 09/18/19 18:06 Dose: 1,000 mg Documented by: Bisacodyl (Dulcolax) 10 mg RECTAL UD PRN PRN Reason: If no BM Diphenhydramine HCl (Benadryl) 25 mg PO Q6H PRN PRN PRN Reason: ITCHING Stop: 09/19/19 14:35 Hydrocortisone (Hytone) 1 applic TOPICAL TID PRN PRN; Protocol PRN Reason: Discomfort Lactated Ringer's () 1,000 mls @ 100 mls/hr IV .Q10H [facility] Last Admin: 09/19/19 00:54 Dose: Not Given Documented by: Naloxone HCl 4 mg/ Dextrose 504 mls @ 0 mls/hr IV .Q0M PRN; Protocol PRN Reason: Respiratory depression Ibuprofen (Motrin) 600 mg PO Q6H PRN PRN PRN Reason: Pain Score 1-3/10 Ketorolac Tromethamine (Toradol (Bkc)) 30 mg IV Q6H [facility] Stop: 09/20/19 14:01 Last Admin: 09/19/19 01:52 Dose: 30 mg Documented by: Labetalol HCl (Trandate) 100 mg PO BID@8030,4700 [facility] Last Admin: 09/19/19 05:52 Dose: 100 mg Documented by: Methylergonovine Maleate (Methergine) 0.2 mg IM X1 PRN PRN Reason: Uterine Atony Nalbuphine HCl (Nubain) 5 mg IV Q3H PRN PRN PRN Reason: ITCHING Stop: 09/19/19 14:35 Naloxone HCl (Narcan) 0.02 mg IV Q1M PRN PRN Reason: RR <10 and pt unresponsive Ondansetron HCl (Zofran) 4 mg IV Q4H PRN PRN PRN Reason: Nausea Last Admin: 09/18/19 17:25 Dose: 4 mg Documented by: Oxycodone HCl (Oxyir) 5 - 10 mg PO Q4H PRN PRN PRN Reason: Pain Score 4-10/10 Prochlorperazine Edisylate (Compazine Iv) 10 mg IV Q6H PRN PRN PRN Reason: NAUSEA Senna/Docusate Sodium (Senokot-S, Tina-Colace) 0 tablet PO DAILY PRN PRN Reason: Constipation Simethicone (Mylicon) 80 mg PO PCHS PRN PRN Reason: Indigestion/stomach pain Sodium Chloride () 5 - 15 ml IV UD PRN PRN Reason: SALINE FLUSH Last Admin: 09/19/19 01:52 Dose: 10 ml Documented by: Medical Necessity - Tobacco Use Smoking Status: Never smoker Assessment/Plan All Active Problems (Last Reviewed 09/16/19 @ 09:02 by Zaina Clement) Breech presentation of fetus (Acute) Nephrolithiasis (Acute) Marginal insertion of umbilical cord (Acute) Supervision of other normal (Acute) (Acute) Low blood potassium (Resolved) Proteinuria (Resolved) s/p LTCS PPD # 1 1. routine post care 2. breast feeding- support given 3. rh positive 4. rubella immune monitor bps- on labetalol
[2019-09-19] MEDS: oxyCODONE 5 MG Tablet PO (17:25)
--- NOTE | 2019-09-19 22:57 | NURSING ---
bedside report received from bryson JUAN. this RN to assume care of pt at thistime.
[2019-09-20 02:21] VITALS: BP 127/86; PULSE 78; RESP 16; TEMP 36.8
[2019-09-20] MEDS: Ketorolac 30 MG/ML Syringe IV (02:23)
[2019-09-20] MEDS: 0.9% Saline Lock 10 ML Syringe IV ×2 (02:23→08:58)
[2019-09-20 05:10] VITALS: BP 124/83; PULSE 78
[2019-09-20] MEDS: Labetalol 100 MG Tablet PO (05:11)
[2019-09-20] MEDS: Senna/Docusate Sodium 1 Tablet PO (09:11)
[2019-09-20] MEDS: Ibuprofen 600 MG Tablet PO (09:11)
[2019-09-20 09:16] VITALS: BP 125/86; PULSE 79; RESP 16; TEMP 37.2; O2SAT 97
--- NOTE | 2019-09-20 09:33 | PCM.PN.OB ---
Subjective: Doing well, no complaints.Pain controlled. Denies CP, SOB, N,V. Ambulating well, tolerating po. Lochia moderate, going well. - Physical Exam Vitals/I&O's: Vital Signs Temp Pulse Resp BP Pulse Ox 98.9 F 79 16 125/86 H 97 09/20/19 09:16 09/20/19 09:16 09/20/19 09:16 09/20/19 09:16 09/20/19 09:16 Oxygen Delivery Method Room Air Weight: 194 lb Body Mass Index (BMI) 32.3 Intake and Output for Last 24 Hours 09/18/19 09/19/19 09/20/19 23:59 23:59 23:59 Intake Total 2160.83 / 2160.83 273.33 / 273.33 Output Total 1400 / 1400 1400 / 1400 Balance 760.83 / 760.83 -1126.67 / -1126.67 General: Oriented x3 Abdomen: Soft, Non-Distended, - - FF at U. Dressing dry and intact. Current Medications Acetaminophen (Tylenol) 1,000 mg PO Q8H PRN PRN Reason: Pain Score 1-310 Last Admin: 09/18/19 18:06 Dose: 1,000 mg Documented by: Bisacodyl (Dulcolax) 10 mg RECTAL UD PRN PRN Reason: If no BM Hydrocortisone (Hytone) 1 applic TOPICAL TID PRN PRN; Protocol PRN Reason: Discomfort Naloxone HCl 4 mg/ Dextrose 504 mls @ 0 mls/hr IV .Q0M PRN; Protocol PRN Reason: Respiratory depression Ibuprofen (Motrin) 600 mg PO Q6H PRN PRN PRN Reason: Pain Score 1-3/10 Last Admin: 09/20/19 09:11 Dose: 600 mg Documented by: Ketorolac Tromethamine (Toradol (Bkc)) 30 mg IV Q6H [facility] Stop: 09/20/19 14:01 Last Admin: 09/20/19 09:04 Dose: Not Given Documented by: Labetalol HCl (Trandate) 100 mg PO BID@0530,1730 JIHAN Last Admin: 09/20/19 05:11 Dose: 100 mg Documented by: Methylergonovine Maleate (Methergine) 0.2 mg IM X1 PRN PRN Reason: Uterine Atony Naloxone HCl (Narcan) 0.02 mg IV Q1M PRN PRN Reason: RR <10 and pt unresponsive Ondansetron HCl (Zofran) 4 mg IV Q4H PRN PRN PRN Reason: Nausea Last Admin: 09/18/19 17:25 Dose: 4 mg Documented by: Oxycodone HCl (Oxyir) 5 - 10 mg PO Q4H PRN PRN PRN Reason: Pain Score 4-10/10 Last Admin: 09/19/19 17:25 Dose: 5 mg Documented by: Prochlorperazine Edisylate (Compazine Iv) 10 mg IV Q6H PRN PRN PRN Reason: NAUSEA Senna/Docusate Sodium (Senokot-S, Tina-Colace) 0 tablet PO DAILY PRN PRN Reason: Constipation Last Admin: 09/20/19 09:11 Dose: 1 tablet Documented by: Simethicone (Mylicon) 80 mg PO PCHS PRN PRN Reason: Indigestion/stomach pain Sodium Chloride () 5 - 15 ml IV UD PRN PRN Reason: SALINE FLUSH Last Admin: 09/20/19 08:58 Dose: 10 ml Documented by: Medical Necessity - Tobacco Use Smoking Status: Never smoker Assessment/Plan All Active Problems (Last Reviewed 09/16/19 @ 09:02 by Zaina Clement) Breech presentation of fetus (Acute) Nephrolithiasis (Acute) Marginal insertion of umbilical cord (Acute) Supervision of other normal (Acute) (Acute) Low blood potassium (Resolved) Proteinuria (Resolved) s/p LTCS PPD # 2 1. routine post care 2. breast feeding- support given 3. rh positive 4. rubella immune 5. Continue labetalol 100mg bid.Check home BPs-notify us if bp<110/70 to stop med, see PCP within 2 weeks. 6. home today
--- NOTE | 2019-09-20 10:07 | PCM.DCCSEC ---
Discharge Diet: No Restrictions Discharge Activity: May not drive while taking narcotic pain medications., May Shower, May Take a Tub Bath May resume sexual activity in: 4-6 weeks Additional Activity Instructions:: Nothing in the vagina for 4-6 weeks. You may return to work/school in 6 weeks. Call your doctor if your incision/area has: Continuous Slow Oozing, Sudden Increased Bleeding, Increased Pain/ Swelling, Increased Redness, Foul Smelling Discharge Call your doctor if you observe: Fever of 101 or Higher, Inability to urinate, Inability to have a bowel movement, Using more than one pad per hour Additional Instructions: If you experience any of the following, contact your healthcare provider. Bleeding that soaks a pad every hour for 2 hours Fever 100.4 or higher Unrelieved incision or abdominal pain Swelling, redness, discharge or bleeding from your incision or episiotomy site Your incision begins to separate Problems urinating (including inability to urinate or burning while urinating). Visual changes Severe headache Flu-like symptoms Pain or redness in one of both of your breasts Pain, warmth, tenderness or swelling in your legs, especially the calf area Frequent nausea and vomiting Symptoms of depression or anxiety If you experience any of the following, call 911 or go to the nearest Emergency Room. Chest pain Problems breathing Seizure activity Partial or complete paralysis of a body part, slurred speech, weakness or drooping of the face, or a sudden inability to walk or hold your balance Allergies/Adverse Reactions: Allergies No Known Allergies Allergy (Verified 09/18/19 09:58) Medications to take at Discharge Vits [Prenatabs FA ] 1 tab PO DAILY 08/16/13 Aspirin [Aspir 81] 81 mg PO DAILY 06/18/19 nifedipine 30 mg tablet,extended release 30 mg PO DAILY #30 tab 09/17/19 Docusate Sodium [Colace] 100 mg PO BID PRN PRN #60 cap 09/18/19 Labetalol [Trandate (Beta Cecelia)] 100 mg PO BID #60 tab 09/20/19 Naproxen [Naprosyn] 500 mg PO BID PRN PRN #60 tab 09/20/19 Oxycodone HCl/Acetaminophen [Oxycodone-Acetaminophen 5-325] 1 tab PO Q6H PRN #28 tab 09/20/19 The following prescriptions were given: Docusate Sodium [Colace] 100 mg PO BID PRN PRN #60 cap PRN Reason: Constipation Transmission Status: Received by [id number] Naproxen [Naprosyn] 500 mg PO BID PRN PRN #60 tab PRN Reason: Pain Transmission Status: Received by [facility] Oxycodone HCl/Acetaminophen [Oxycodone-Acetaminophen 5-325] 1 tab PO Q6H PRN #28 tab PRN Reason: pain Transmission Status: Received by [facility] Labetalol [Trandate (Beta Cecelia)] 100 mg PO BID #60 tab Transmission Status: Received by [facility] Follow-Up: Call to make an appointment with your doctor for an incision check in 1-2 weeks. You will also need a 6 week post- follow up appointment. Test results from this visit will be discussed in further detail at your follow-up appointment, if applicable. Primary Care Physician: Loren Elder PA-C [Primary Care Provider] -
== END 2019-09-20 11:30 | disposition home or self-care (01) | DRG 788 ==
LOC: WPOUT 11:18 → WP 11:18
PROVIDERS: Obstetrics & Gynecology; Admitting Provider Obstetrics & Gynecology; PCP Family Medicine; Referring Provider Obstetrics & Gynecology; Visit Provider Obstetrics & Gynecology
PROC: (CPT 59514; principal; 2019-09-23 07:15)
DX: O32.1XX0 Maternal care for breech presentation, not applicable or unspecified (principal); Z3A.37 37 weeks gestation of pregnancy; Z37.0 Single live birth; O13.4 Gestational [pregnancy-induced] hypertension without significant proteinuria, complicating childbirth
CPT/HCPCS: 59025; 59050; 82565; 82570; 84156; 84450; 84460; 84550; 85027; 85610; 85730; 86850; 86900; 86901; 99218; 99251; J7120; A4216; G0378; G0463; J2405

== ENCOUNTER → 2022-07-04 | Outpatient (CLI) | payer BC, SELFPAY ==
[2022-07-07 19:42] LABS: HPV APTIMA, High Risk Negative (Negative)
== END | disposition home or self-care (01) ==
LOC: LABSPEC 11:55
PROVIDERS: PCP Family Medicine; Referring Provider Registered Nurse; Visit Provider Registered Nurse
DX: Z01.419 Encounter for gynecological examination (general) (routine) without abnormal findings (principal)
CPT/HCPCS: 87624; 88175; G0145